=== PATIENT | female | born 1960 | race Hispanic/Latino ===

== ENCOUNTER 2021-09-21 03:57 | Emergency (ER) | payer OTHER, SELFPAY ==
[~2021-09-21] VITALS: Ht 152.4 cm; Wt 63.0 kg
[2021-09-21 04:28] LABS: BASOPHILS % (AUTO) 0.7 % (0.0-5.0); EOSINOPHILS % (AUTO) 2.4 % (0.0-8.0); HEMATOCRIT 42.6 % (36-48); LYMPHOCYTES % (AUTO) 29.9 % (21.0-51.0); MEAN CORPUSCULAR HEMOGLOBIN 29.6 pg (27.0-33.0); MEAN CORPUSCULAR HGB CONC 33.1 g/dL (32.0-36.0); MEAN CORPUSCULAR VOLUME 89.5 fL (79-99); MONOCYTES % (AUTO) 6.3 % (3.0-13.0); NEUTROPHILS % (AUTO) 60.4 % (40.0-77.0); PLATELET COUNT (AUTO) 306 K/uL (130-400); RED BLOOD CELL COUNT(AUTO) 4.76 MIL/uL (4.00-5.50); RED CELL DISTRIBUTION WIDTH 12.7 % (11.0-15.5); WHITE BLOOD COUNT (AUTO) 12.2 K/uL (4.8-10.8)
[2021-09-21] MEDS ORDERED: MORPHINE 4 MG SYG IVP ONE (04:30)
[2021-09-21] MEDS ORDERED: ONDANSETRON 4MG INJ IVP ONE (04:30)
[2021-09-21 04:46] LABS: CREATININE 0.9 mg/dL (0.5-1.5); POTASSIUM 3.5 mmol/L (3.5-5.1)
[2021-09-21 04:54] LABS: ALBUMIN 3.8 g/dL (3.5-5.0); BILIRUBIN,TOTAL 0.4 mg/dL (0.2-1.0); TOTAL PROTEIN, SERUM 7.2 g/dL (6.0-8.3)
[2021-09-21 05:00] LABS: BILIRUBIN,URINE Negative (NEGATIVE); COLOR,URINE Yellow (YELLOW); GLUCOSE, URINE (UA) Negative (NEGATIVE); KETONES,URINE Trace mg/dL (NEGATIVE); LEUKOCYTE ESTERASE ,URINE Trace (NEGATIVE); NITRATE,URINE Negative (NEGATIVE); OCCULT BLOOD,URINE Negative (NEGATIVE); PH,URINE 6.5 (5.0-8.0); PROTEIN,URINE Trace mg/dL (NEGATIVE)
[2021-09-21 05:02] LABS: HCG,QUAL RESULT NEGATIVE (NEGATIVE)
[2021-09-21 05:03] LABS: APPEARANCE,URINE SLIGHTLY CLOUDY (CLEAR)
[2021-09-21 05:09] LABS: AMORPHOUS SEDIMENT,UR Moderate /LPF (None Seen); BACTERIA,URINE Few /HPF (None Seen); MUCUS,URINE Moderate LPF (None Seen); RBC,URINE 0-1 /HPF (0-1); SQUAMOUS EPITHELIAL CELL,UR 0-2 /HPF (0-2); WBC,URINE 0-1 /HPF (0-1)
[2021-09-21 07:24] VITALS: BP 126/37
[2021-09-21] MEDS ORDERED: DICL50TA9 PO (07:25)
[2021-09-21] MEDS ORDERED: KETOROLAC 30MG VIAL (30MG/ML) IVP ONE (07:30)
== END 2021-09-21 07:50 | disposition home or self-care (01) ==
LOC: EDH 03:57
DX: K80.70 Calculus of gallbladder and bile duct without cholecystitis without obstruction (principal)
CPT/HCPCS: 36415; 76705; 80053; 81001; 81025; 83690; 85025; 96374; 96375; 99284; J1885; J2270; J2405

== ENCOUNTER 2024-04-05 09:30 | Inpatient (IN) | payer SELFPAY ==
[~2024-04-05] VITALS: Ht 165.1 cm; Wt 55.4 kg
[~2024-04-05 09:30] MED LIST: DICL50TA9 PO
[2024-04-05 09:55] LABS: APPEARANCE,URINE TURBID (CLEAR); BILIRUBIN,URINE NEGATIVE (NEGATIVE); COLOR,URINE YELLOW (YELLOW); GLUCOSE, URINE (UA) NEGATIVE (NEGATIVE); KETONES,URINE NEGATIVE (NEGATIVE); LEUKOCYTE ESTERASE ,URINE NEGATIVE Leu/uL (NEGATIVE); NITRATE,URINE NEGATIVE (NEGATIVE); OCCULT BLOOD,URINE NEGATIVE (NEGATIVE); PROTEIN,URINE 10 mg/dL (NEGATIVE)
[2024-04-05 09:59] LABS: BASOPHILS # (AUTO) 0.06 K/uL (0.00-0.20); BASOPHILS % (AUTO) 0.6 % (0.0-5.0); EOSINOPHILS # (AUTO) 0.13 K/uL (0.00-0.70); EOSINOPHILS % (AUTO) 1.3 % (0.0-8.0); HEMATOCRIT 44.2 % (36-48); IMMATURE GRANULOCYTE ABSOLUTE 0.03 K/uL (0-1); LYMPHOCYTES # (AUTO) 1.9 K/uL (1.0-4.8); LYMPHOCYTES % (AUTO) 19.4 % (21.0-51.0); MEAN CORPUSCULAR HEMOGLOBIN 29.2 pg (27.0-33.0); MEAN CORPUSCULAR HGB CONC 33.5 g/dL (32.0-36.0); MEAN CORPUSCULAR VOLUME 87.4 fL (79-99); MONOCYTES # (AUTO) 0.7 K/uL (0.1-1.0); MONOCYTES % (AUTO) 6.9 % (3.0-13.0); NEUTROPHILS # (AUTO) 6.9 K/uL (1.8-7.7); NEUTROPHILS % (AUTO) 71.5 % (40.0-77.0); PLATELET COUNT (AUTO) 282 K/uL (130-400); RED BLOOD CELL COUNT(AUTO) 5.06 MIL/uL (4.00-5.50); RED CELL DISTRIBUTION WIDTH 13.1 % (11.0-15.5); WHITE BLOOD COUNT (AUTO) 9.7 K/uL (4.8-10.8)
[2024-04-05 10:02] LABS: ADD UA MICROSCOPIC YES
[2024-04-05 10:03] LABS: SQUAMOUS EPITHELIAL CELL,UR RARE /HPF (0-2); WBC,URINE None Seen /HPF (0-1); YEAST,URINE BUDDING FEW /HPF (None Seen)
[2024-04-05 10:08] LABS: CREATININE 0.8 mg/dL (0.5-1.0); POTASSIUM 3.4 mmol/L (3.5-5.1)
[2024-04-05 10:13] LABS: BILIRUBIN,DIRECT 0.4 mg/dL (0.0-0.3); BILIRUBIN,TOTAL 0.8 mg/dL (0.2-1.0)
--- NOTE | 2024-04-05 10:37 | ERN ---
General Chief Complaint: Abdominal Pain Stated Complaint: RT UPPER QUAD PAIN Time Seen by MD: 09:33 History of Present Illness Initial Comments 63-year-old female, otherwise healthy, no surgical history, presents for right upper quadrant pain and vomiting beginning this morning at around three or 4:00 a.m.. Significant pain, very tender. No fevers no diarrhea no dysuria or flank pain. She reports she had pain similar to this a year two ago that resolved on its own. Allergies: Coded Allergies: No Known Allergies (Unverified Allergy, Unknown, 09/21/21) Home Meds Active Scripts Diclofenac Sodium (Diclofenac Sodium) 50 Mg Tablet.dr, 50 MG PO TIDP PRN for SEVERE PAIN (7-10), #20 TAB 0 Refills Prov:JAVIER OSBORN MD 09/21/21 Past Medical History Past Medical History: No Pertinent History Past Surgical History: Social History Social History: Other ROS Dictation CONSTITUTIONAL: No chills, no fever, no weakness, no diaphoresis, no malaise. HEAD/FACE: No signs of trauma. EENT: No eye pain, no blurred vision, no tearing, no double vision, no ear pain, no ear discharge, no nose pain, no nasal congestion, no throat pain, no throat swelling, no mouth pain. RESPIRATORY: No cough, no orthopnea, no SOB, no stridor, no wheezing. CARDIOVASCULAR: No chest pain, no edema, no palpitations, no syncope. GASTROINTESTINAL/ABDOMINAL: Right upper quadrant pain and vomiting GENITOURINARY: No abnormal discharge, no dysuria, no frequent urination, no hematuria. No complaints of pain in the genitals. MUSCULOSKELETAL: No back pain, no gout, no joint pain, no joint swelling, no muscle pain, no muscle stiffness, no neck pain. INTEGUMENTARY: No change in color, no change in hair/nails, no dryness, no lesion, no lumps, no rash. NEUROLOGICAL/PSYCH: No anxiety, not depressed, no emotional problem, no headache, no numbness, no pre-existing deficit, no history of seizures, no tremors, no weakness. HEMATOLOGIC/LYMPHATIC: Not anemic, no history of blood clots, no apparent bleeding, no bruising, glands not swollen. All Systems Negative, Except as Noted. Physical Exam Physical Exam Dictation VITAL SIGNS: Reviewed. GENERAL APPEARANCE: Alert, moderate discomfort HEAD AND FACE: Non-traumatic. EYES: PERRL, pink conjunctivas, eyelid no trauma, anterior chamber clear. EARS: Pinnas intact and no signs of trauma or erythema. Ear canals clear and no discharge. TMs no erythema. NOSE: No discharge, no bleeding. OROPHARYNX: Mouth normal, teeth no caries, tongue pink. Pharynx clear, no erythema. Tonsils no exudates, no abscesses noted. Mucous membrane moist. NECK: Supple, non-tender, no thyromegaly, no masses, no JVD, no bruits. BREAST: Deferred. CHEST: No tenderness, no crepitus, no paradoxical movement, no retractions. LUNGS: Clear, well-ventilated, symmetric, no rales, no wheezing, no rhonchi, no stridor, good breath sounds bilaterally. HEART: Regular rate, regular rhythm, no murmur, no gallops. VASCULAR: No peripheral edema. ABDOMEN: Positive Ceja sign, right upper quadrant tenderness. No distention. RECTAL: Deferred. GENITAL: Deferred. NEUROLOGICAL: Normal speech, gross motor function intact, gross sensory function intact. MUSCULOSKELETAL: Neck nontender, full range of motion, back nontender, full ran ge of motion. EXTREMITIES: Nontender, full range of motion. SKIN: Color pink, dry, no turgor, no rash, no lacerations, no abrasions, no contusions. LYMPHATICS: Deferred. Results Laboratory and Microbiology Lab and Micro Result Laboratory Tests Test 04/05/24 09:43 04/05/24 09:50 Urine Color YELLOW (YELLOW) Urine Appearance TURBID (CLEAR) Urine pH 8.0 (5.0-8.0) Urine Specific [place] 1.019 (1.001-1.031) Urine Protein 10 mg/dL (NEGATIVE) H Urine Glucose (UA) NEGATIVE mg/dL (NEGATIVE) Urine Ketones NEGATIVE mg/dL (NEGATIVE) Urine Occult Blood NEGATIVE (NEGATIVE) Urine Nitrate NEGATIVE (NEGATIVE) Urine Bilirubin NEGATIVE mg/dL (NEGATIVE) Urine Urobilinogen 2.0 mg/dL (0.2-1.0) H Urine Leukocyte Esterase NEGATIVE Sobeida/uL Urine RBC 6-10 /HPF (0-1) H Urine WBC None Seen /HPF (0-1) Urine WBC Clumps (Auto) 2-5 /HPF (0-1) H Urine Squamous Epithelial Cells RARE /HPF (0-2) Urine Amorphous Crystals (Auto) RARE /LPF (None Seen) Urine Bacteria None /HPF (None Seen) Urine Yeast FEW /HPF (None Seen) White Blood Count 9.7 K/uL (4.8-10.8) Red Blood Count 5.06 MIL/uL (4.00-5.50) Hemoglobin 14.8 g/dL (12.0-16.0) Hematocrit 44.2 % (36-48) Mean Corpuscular Volume 87.4 fL (79-99) Mean Corpuscular Hemoglobin 29.2 pg (27.0-33.0) Mean Corpuscular Hemoglobin Concent 33.5 g/dL (32.0-36.0) Red Cell Distribution Width 13.1 % (11.0-15.5) Platelet Count 282 K/uL (130-400) Mean Platelet Volume 10.5 fL (7.5-10.5) Immature Granulocyte % (Auto) 0.3 % (0-1) Neutrophils (%) (Auto) 71.5 % (40.0-77.0) Lymphocytes (%) (Auto) 19.4 % (21.0-51.0) L Monocytes (%) (Auto) 6.9 % (3.0-13.0) Eosinophils (%) (Auto) 1.3 % (0.0-8.0) Basophils (%) (Auto) 0.6 % (0.0-5.0) Neutrophils # (Auto) 6.9 K/uL (1.8-7.7) Lymphocytes # (Auto) 1.9 K/uL (1.0-4.8) Monocytes # (Auto) 0.7 K/uL (0.1-1.0) Eosinophils # (Auto) 0.13 K/uL (0.00-0.70) Basophils # (Auto) 0.06 K/uL (0.00-0.20) Absolute Immature Granulocyte (auto 0.03 K/uL (0-1) Nucleated Red Blood Cells 0.0 % (0.0-0.19) Sodium Level 140 mmol/L (136-145) Potassium Level 3.4 mmol/L (3.5-5.1) L Chloride Level 102 mmol/L (101-111) Carbon Dioxide Level 31 mmol/L (21-32) Blood Urea Nitrogen 12 mg/dL (7-18) Creatinine 0.8 mg/dL (0.5-1.0) Glomerular Filtration Rate Calc 84 mL/min (>90) Random Glucose 130 mg/dL (70-105) H Total Calcium 9.3 mg/dL (8.5-10.1) Total Bilirubin 0.8 mg/dL (0.2-1.0) Direct Bilirubin 0.4 mg/dL (0.0-0.3) H Aspartate Amino Transf (AST/SGOT) 289 U/L (10-37) H Alanine Aminotransferase (ALT/SGPT) 155 U/L (12-78) H Alkaline Phosphatase 192 U/L (50-136) H Troponin I High Sensitivity 4 ng/L (4-50) Total Protein 8.0 g/dL (6.0-8.3) Albumin 4.0 g/dL (3.5-5.0) Lipase 48 U/L (16-77) MDM CC: Right upper quadrant pain, nausea, vomiting Historian: Patient Comorbidities: None Limitations by social determinants of health: No PCP or outpatient follow up Differential diagnosis: Biliary disease, pancreatitis, cholecystitis, choledocholithiasis, gastritis, kidney stone, other. Right upper quadrant ultrasound ( ordered and independently interpreted by me): Concerning for symptomatic cholelithiasis or cholecystitis. There are gallstones with a distended gallbladder 12 cm. Positive Ceja's sign. CBD is stable. Vital signs: Stable, remained stable in the ER Labs: Ordered and independently interpreted by me): No leukocytosis or anemia. Chemistry panel shows normal electrolytes, AST ALT elevated, alk-phos elevated. T bili and D bili stable. Lipase stable. Troponin normal. EKG: Sinus rhythm, rate 64 normal axis good R progression intervals are stable no STEMI. Independently interpreted by me. No signs of infection. Patient received IV morphine, IV Zofran, IV Toradol and 1 L normal saline here in the ER. Also received a dose of Zosyn. We will admit for cholecystitis. Patient is agreeable. Consultation: Hospitalist for admission ED Course Orders Procedure Category Date Status Time Cbc With Differential LAB 04/05/24 Complete 09:37 Troponin I High LAB 04/05/24 Complete Sensitivity 09:37 Urinalysis Profile LAB 04/05/24 Complete 09:37 Us Abdominal Ruq\Ltd US 04/05/24 Taken 09:37 0.9%Nacl 1000ml (Ns PHA 04/05/24 In Process 1000ml) 10:00 Ketorolac PHA 04/05/24 In Process Tromethamine 15mg/Ml 10:00 Morphine 4mg Syg PHA 04/05/24 In Process (Morphine 4mg Syg) 10:00 Ondansetron 4mg Inj PHA 04/05/24 In Process (Zofran 4mg Inj) 10:00 Lipase LAB 04/05/24 Complete 09:37 Basic Metabolic Panel LAB 04/05/24 Complete 09:37 Hepatic Function Panel LAB 04/05/24 Complete 09:37 Current Medications Medications (Trade) Dose Ordered Sig/Emerson Route PRN Reason Start Time Stop Time Status Last Admin Dose Admin Ketorolac Tromethamine (toRADol) 15 mg ONCE ONCE IV 04/05/24 10:00 04/05/24 10:01 Morphine Sulfate (morPHINE 4MG SYG) 4 mg ONCE ONCE IVP 04/05/24 10:00 04/05/24 10:01 Ondansetron HCl (zoFRAN 4MG INJ) 4 mg ONCE ONCE IVP 04/05/24 10:00 04/05/24 10:01 Sodium Chloride 1,000 ml @ 0 mls/hr ONCE ONCE IV 04/05/24 10:00 04/05/24 10:01 Vital Signs Date Time Temp Pulse Resp B/P (MAP) Pulse Ox O2 Delivery O2 Flow Rate FiO2 04/05/24 09:32 97.0 78 16 120/64 0 Room Air DX & DISP Disposition: Inpatient Departure Impression: Primary Impression: Cholecystitis Condition: Stable Referrals: NONE (PCP) JOCELYN DAILY DO Apr 05, 2024 10:37
[2024-04-05] MEDS: 0.9%NACL 1000ML 1,000 ML IV ONE (10:44)
[2024-04-05] MEDS: ketOROlac 15MG/ML VIAL (15MG/ML) IV ONE (10:44)
[2024-04-05] MEDS: ondanSETRON 4MG INJ IVP ONE (10:45)
[2024-04-05] MEDS: morPHINE 4 MG SYG IVP ONE (10:45)
--- NOTE | 2024-04-05 10:48 | HMCIMG ---
US ABDOMINAL RUQ\E\LTD HISTORY: Adominal Pain TECHNIQUE: US ABDOMINAL RUQ\E\LTD. FINDINGS: LIVER: Diffuse increased echogenicity of the liver is seen suggestive of hepatic parenchymal disease, such as hepatic steatosis. GALLBLADDER: Distended gallbladder with gallstones and positive Ceja sign. No gallbladder wall thickening is seen. Findings may represent acute cholecystitis in the proper clinical setting. CBD: Measures up to 0.3cm. PANCREAS: The visualized pancreas appears within normal limits. RIGHT KIDNEY: measures 7.4cm in length. No hydronephrosis or calculi. IMPRESSION: Distended gallbladder with gallstones and positive Ceja sign. No gallbladder wall thickening is seen. Findings may represent early acute cholecystitis in the proper clinical setting. Hepatic steatosis.
[2024-04-05] MEDS ORDERED: PoTASSium chl 10% ELIXIR 20MEQ 20 MEQ/15 ML UDCUP PO PRN (11:30)
[2024-04-05] MEDS ORDERED: ondanSETRON 4MG INJ IVP PRN (11:30)
[2024-04-05] MEDS ORDERED: ketOROlac 15MG/ML VIAL (15MG/ML) IM PRN (11:30)
[2024-04-05] MEDS ORDERED: PoTASSium chloRIDE 20MEQ ER 20 MEQ ERTAB PO PRN (11:30)
[2024-04-05] MEDS ORDERED: acetaMINOPHEN 500 MG TABLET PO PRN (11:30)
[2024-04-05] MEDS ORDERED: PoTASSium chloRIDE 20MEQ/100ML 100 ML IV PRN (11:30)
[2024-04-05] MEDS ORDERED: morPHINE 2 MG SYG IVP PRN (11:30)
[2024-04-05] MEDS: LACTATED RINGERS 1000ML 1,000 ML IV SCH (11:45)
--- NOTE | 2024-04-05 11:46 | HP ---
[facility] HISTORY AND PHYSICAL Date of Service: Apr 05, 2024 Time of Service: 11:44 HISTORY OF PRESENT ILLNESS: Date of service: 04/05/2024 63-year-old female with history of cholelithiasis, fatty liver disease who presented to the ER with chief complaint of who presented to the ER with chief complaint of right upper quadrant abdominal pain with associated nausea and and vomiting. Symptoms started close to 4:00 a.m.. Pain was 8/10 in severity. Patient denies any fevers or chills otherwise. Patient had presented similarly about a year ago to [facility] and was diagnosed with cholelithiasis. She denies any previous cardiac or medical comorbidities otherwise. Son reports that she ate a spicy meal for supper last night which probably contributed to the current symptoms. On presentation to the hospital, patient was noted to be afebrile and hemodynamically stable. CMP remarkable for sodium of 140, potassium 3.4, creatinine 0.8, total bilirubin of 0.8, AST of 289, ALT of 155, alkaline phosphatase of 192. Patient underwent right upper quadrant ultrasound which showed findings of distended gallbladder with gallstones and positive Ceja's sign. Common bile duct was noted to be 0.3 cm. Findings concerning for early acute cholecystitis. Patient will be admitted for further management of biliary colic with cholelithiasis and developing acute cholecystitis. Consultation with General surgery will be requested. Patient will be placed on bowel rest with IV fluids and IV antibiotics. HIDA scan will be obtained as well to confirm diagnosis of acute cholecystitis. Plan of care was discussed with patient and son at bedside. REVIEW OF SYSTEMS CONSTITUTIONAL: Denies fevers, chills, or night sweats. No unintentional weight loss reported. NEUROLOGICAL: Denies headache, amaurosis fugax, motor weakness, sensory deficit, vertigo/spinning sensation, gait abnormalities, or tremors. ENT: No hearing loss, otalgia, otorrhea, rhinitis, rhinorrhea, hoarseness, or sore throat. CARDIOVASCULAR: Denies any exertional angina, dyspnea on exertion, orthopnea, paroxysmal nocturnal dyspnea, palpitations, life-threatening arrhythmias, claudication. PULMONARY: Denies any shortness of breath, cough, phlegm/sputum, hemoptysis, pleuritic chest pain. SLEEP: Denies morning headaches, daytime somnolence or napping. Denies difficulty falling asleep, staying asleep, waking from sleep. Denies knowledge of snoring. GASTROINTESTINAL: Nausea, vomiting, abdominal pain GENITOURINARY: Denies frequency, urgency, nocturia, hematuria or incontinence (Storage/Irritative symptoms.) Low urinary stream, straining to void, urinary intermittency or hesitancy, splitting of the voiding stream, terminal dribbling. ENDOCRINOLOGIC: Denies polyuria, polydipsia, polyphagia or heat/cold intolerances. HEMATOLOGIC: Denies thrombophilia/previous clots, or coagulopathy/bleeding disorders. ONCOLOGIC: Denies personal history of malignancy. DERMATOLOGIC: Denies rashes or pruritus. PSYCHIATRIC: Denies any suicidal or homicidal ideation. Denies hallucinations. PAST MEDICAL HISTORY: Cholelithiasis, fatty liver disease PAST SURGICAL HISTORY: Denies previous surgical history PAST SOCIAL HISTORY: Smokes about 2-3 cigarettes per month for several years, denies any alcohol consumption FAMILY HISTORY: Denies pertinent family history Allergies: Patient denies known drug allergies Medications: Family will be bringing home medication list to be reconciled and updated Coded Allergies: No Known Allergies (Unverified Allergy, Unknown, 09/21/21) PHYSICAL EXAM GENERAL APPEARANCE: The patient is awake, alert, and oriented, in no acute cardiopulmonary distress. NEUROLOGICAL: Cranial nerves II-XII grossly intact. Motor is 5/5 in bilateral upper and lower extremities proximal to distal. No sensory deficits. HEENT: Face is symmetric. Pupils are equal and reactive. Extraocular movements are intact. NECK: Supple. No JVD. No thyromegaly. No submental, submandibular, pre-/po stauricular, occipital or supraclavicular lymphadenopathy. CHEST: Normal chest expansion. No Telemetry. LUNGS: Absence of any rales, rhonchi or any wheezing. CARDIOVASCULAR: Regular. S1 and S2 normal. No appreciable rubs, murmurs or gallops. ABDOMEN: Soft, tenderness to palpation of the right upper quadrant with no rebound or guarding : Deferred. No Chau. EXTREMITIES: Non-edematous and not cyanotic. No clubbing. Good capillary refill. SKIN: No skin breakdown. Vital Sign (Last 24 Hours) 04/05/24 09:32 Temp 97.0 Pulse 78 Resp 16 B/P (MAP) 120/64 Pulse Ox 0 O2 Delivery Room Air LABS: Laboratory: Test 04/05/24 09:50 04/05/24 09:43 Range/Units White Blood Count 9.7 4.8-10.8 K/uL Red Blood Count 5.06 4.00-5.50 MIL/uL Hemoglobin 14.8 12.0-16.0 g/dL Hematocrit 44.2 36-48 % Mean Corpuscular Volume 87.4 79-99 fL Mean Corpuscular Hemoglobin 29.2 27.0-33.0 pg Mean Corpuscular Hemoglobin Concent 33.5 32.0-36.0 g/dL Red Cell Distribution Width 13.1 11.0-15.5 % Platelet Count 282 130-400 K/uL Mean Platelet Volume 10.5 7.5-10.5 fL Immature Granulocyte % (Auto) 0.3 0-1 % Neutrophils (%) (Auto) 71.5 40.0-77.0 % Lymphocytes (%) (Auto) 19.4 L 21.0-51.0 % Monocytes (%) (Auto) 6.9 3.0-13.0 % Eosinophils (%) (Auto) 1.3 0.0-8.0 % Basophils (%) (Auto) 0.6 0.0-5.0 % Neutrophils # (Auto) 6.9 1.8-7.7 K/uL Lymphocytes # (Auto) 1.9 1.0-4.8 K/uL Monocytes # (Auto) 0.7 0.1-1.0 K/uL Eosinophils # (Auto) 0.13 0.00-0.70 K/uL Basophils # (Auto) 0.06 0.00-0.20 K/uL Absolute Immature Granulocyte (auto 0.03 0-1 K/uL Nucleated Red Blood Cells 0.0 0.0-0.19 % Sodium Level 140 136-145 mmol/L Potassium Level 3.4 L 3.5-5.1 mmol/L Chloride Level 102 101-111 mmol/L Carbon Dioxide Level 31 21-32 mmol/L Blood Urea Nitrogen 12 7-18 mg/dL Creatinine 0.8 0.5-1.0 mg/dL Glomerular Filtration Rate Calc 84 >90 mL/min Random Glucose 130 H 70-105 mg/dL Total Calcium 9.3 8.5-10.1 mg/dL Total Bilirubin 0.8 0.2-1.0 mg/dL Direct Bilirubin 0.4 H 0.0-0.3 mg/dL Aspartate Amino Transf (AST/SGOT) 289 H 10-37 U/L Alanine Aminotransferase (ALT/SGPT) 155 H 12-78 U/L Alkaline Phosphatase 192 H 50-136 U/L Troponin I High Sensitivity 4 4-50 ng/L Total Protein 8.0 6.0-8.3 g/dL Albumin 4.0 3.5-5.0 g/dL Lipase 48 16-77 U/L Urine Color YELLOW YELLOW Urine Appearance TURBID CLEAR Urine pH 8.0 5.0-8.0 Urine Specific [place] 1.019 1.001-1.031 Urine Protein 10 H NEGATIVE mg/dL Urine Glucose (UA) NEGATIVE NEGATIVE mg/dL Urine Ketones NEGATIVE NEGATIVE mg/dL Urine Occult Blood NEGATIVE NEGATIVE Urine Nitrate NEGATIVE NEGATIVE Urine Bilirubin NEGATIVE NEGATIVE mg/dL Urine Urobilinogen 2.0 H 0.2-1.0 mg/dL Urine Leukocyte Esterase NEGATIVE NEGATIVE Sobeida/uL Urine RBC 6-10 H 0-1 /HPF Urine WBC None Seen 0-1 /HPF Urine WBC Clumps (Auto) 2-5 H 0-1 /HPF Urine Squamous Epithelial Cells RARE 0-2 /HPF Urine Amorphous Crystals (Auto) RARE None Seen /LPF Urine Bacteria None None Seen /HPF Urine Yeast FEW None Seen /HPF Current Medications Medications (Trade) Dose Ordered Sig/Emerson Route PRN Reason Start Time Stop Time Status Last Admin Dose Admin Acetaminophen (TYLenol 500MG TAB) 500 mg Q6H PRN PO MILD PAIN (1-3) 04/05/24 11:30 05/05/24 11:29 Ketorolac Tromethamine (toRADol) 15 mg Q12H PRN IM MODERATE PAIN (4-6) 04/05/24 11:30 04/05/24 11:27 DC Ketorolac Tromethamine (toRADol) 15 mg Q12H PRN IV MODERATE PAIN (4-6) 04/05/24 11:30 04/10/24 11:29 Lactated Ringer's 1,000 ml @ 75 mls/hr [id number] IV 04/05/24 11:30 05/05/24 11:29 Morphine Sulfate (morPHINE 2MG SYG) 2 mg Q6H PRN IVP SEVERE PAIN (7-10) 04/05/24 11:30 04/12/24 11:29 Ondansetron HCl (zoFRAN 4MG INJ) 4 mg Q6H PRN IVP NAUSEA/VOMITING 04/05/24 11:30 05/05/24 11:29 Pantoprazole Sodium (PROTonix 40MG INJ) 40 mg Q24H IVP 04/05/24 11:30 05/05/24 11:29 Piperacillin Sod/ Tazobactam Sod (Zosyn 3.375gm+NS 50ml) 3.375 gm Q8H IV 04/05/24 11:00 04/15/24 10:59 Potassium Chloride 100 ml @ 100 mls/hr AD PRN IV POTASSIUM PROTOCOL 04/05/24 11:30 05/05/24 11:29 Potassium Chloride (K-Dur/Klor-Con 20meq) 20 meq AD PRN PO POTASSIUM PROTOCOL 04/05/24 11:30 05/05/24 11:29 Potassium Chloride (KCl 10% Elixir 20meq/15ml) 20 meq AD PRN PO POTASSIUM PROTOCOL 04/05/24 11:30 05/05/24 11:29 DIAGNOSTICS / RADIOLOGY: [place] [address] IMAGING REPORT Signed PATIENT: ROBERTO CARLOS TORRES MR#: [id number] : 1960 SEX: F AGE: 63 LOCATION: [facility] ORDER 7 STATUS: REG REPORT#: [id number] SERVICE [id number] REASON: Adominal Pain ORDERING PHYSICIAN: JOCELYN DAILY DO PROCEDURE: [id number] - US ABDOMINAL RUQ\LTD US ABDOMINAL RUQ\E\LTD HISTORY: Adominal Pain TECHNIQUE: US ABDOMINAL RUQ\E\LTD. FINDINGS: LIVER: Diffuse increased echogenicity of the liver is seen suggestive of hepatic parenchymal disease, such as hepatic steatosis. GALLBLADDER: Distended gallbladder with gallstones and positive Ceja sign. No gallbladder wall thickening is seen. Findings may represent acute cholecystitis in the proper clinical setting. CBD: Measures up to 0.3cm. PANCREAS: The visualized pancreas appears within normal limits. RIGHT KIDNEY: measures 7.4cm in length. No hydronephrosis or calculi. IMPRESSION: Distended gallbladder with gallstones and positive Ceja sign. No gallbladder wall thickening is seen. Findings may represent early acute cholecystitis in the proper clinical setting. Hepatic steatosis. DICTATED BY: SHEFALI LAWSON MD DATE: 04/05/24 104 ELECTRONICALLY SIGNED BY: SHEFALI LAWSON MD DATE: 04/05/24 104 ASSESSMENT: Suspected acute cholecystitis, POA Cholelithiasis with history of recurrent biliary colic, POA Fatty liver disease, POA Mild cholestatic hepatitis, POA Hypokalemia, POA PVCs, POA PLAN: Patient will be admitted to medical-surgical floor Patient will be placed on bowel rest, we will start patient on lactated Ringer's at 75 mL/hour Broad-spectrum antibiotics with IV Zosyn Pain control with Tylenol for mild pain, Toradol for moderate pain in morphine for severe pain Consultation with General surgery will be requested with , discussed patient's case, plan to obtain HIDA scan to confirm diagnosis of acute cholecystitis Patient was educated on low-fat diet, verbalized understanding Monitor liver function tests closely All labs will be repeated in the morning Potassium will be repleted per protocol EKG showed some PVCs, electrolytes will be repleted including potassium and magnesium and patient will be kept on telemetry for tonight Date of service: 04/05/2024 Plan of care was discussed with patient at bedside, Adams Huitron MD Advanced Care Planning: Which of the following were discussed: Hospice care: Yes __ No _X_ Therapeutic options: Yes _X_ No __ Advance directives: Yes __X No __ Other discussions: Discussed with who?: Patient Voluntary nature of this service was explained to the patient? Yes _x_ No __ Amount of time spent: 20 minutes ADAMS HUITRON MD Apr 05, 2024 11:46
[2024-04-05] MEDS: PANTOPrazole 40 MG/VIAL IVP SCH (11:48)
[2024-04-05] MEDS: ZOSYN 3.375GM +NS 50ML IV SCH (11:49)
[2024-04-05 12:11] LABS: INR <= 0.93 (0.85-1.15); PROTHROMBIN TIME 10.1 SEC (9.6-11.6)
--- NOTE | 2024-04-05 12:12 | HMCIMG ---
Exam Type: CHEST 1VW Clinical Information: assess for any significant infiltrates Comparison: None Findings: The lungs are clear of infiltrates. The heart is normal in size. The bony and soft tissue structures of the chest are unremarkable. Impression: Clear lungs.
[2024-04-05 12:13] LABS: PARTIAL THROMBOPLASTIN TIME 26.1 SEC (26.3-35.5)
[2024-04-05 12:28] LABS: HEMOGLOBIN A1C 5.6 % (4.0-6.0)
[2024-04-05 12:46] LABS: THYROID STIMULATING HORMONE 1.91 uIU/mL (0.36-3.74)
[2024-04-05 12:48] LABS: ACETAMINOPHEN < 1 mcg/mL (10-30)
--- NOTE | 2024-04-05 14:05 | EKG ---
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
[2024-04-05 15:20] VITALS: BP 107/70; PULSE 63; RESP 18; TEMP 97.8
[2024-04-05 20:00] VITALS: BP 98/56; PULSE 82; RESP 17; TEMP 99.2
--- NOTE | 2024-04-05 20:52 | HMCIMG ---
NM HIDA WO EF/CCK HISTORY: cholelithiasis, r/o acute cholecystitis TECHNIQUE: The patient was injected with mCi technetium 99 mebrofenin. FINDINGS: Imaging reveals prompt clearance of radiotracer from the cardiac blood pool. There is physiologic radiotracer activity in the liver. No radiotracer excretion is seen in the CBD, duodenum and gallbladder concerning for high-grade CBD obstruction. Consider correlation with MRCP. IMPRESSION: No radiotracer excretion is seen in the CBD, duodenum and gallbladder concerning for high-grade CBD obstruction. Consider correlation with MRCP.
[2024-04-06] VITALS (28 sets, daily range): BP systolic 92–112; BP diastolic 50–72; PULSE 57–76; RESP 13–20; TEMP 97.3–98.5; O2SAT 96–99
[2024-04-06 06:10] LABS: BASOPHILS # (AUTO) 0.05 K/uL (0.00-0.20); BASOPHILS % (AUTO) 0.8 % (0.0-5.0); EOSINOPHILS # (AUTO) 0.32 K/uL (0.00-0.70); EOSINOPHILS % (AUTO) 5.4 % (0.0-8.0); HEMATOCRIT 35.7 % (36-48); IMMATURE GRANULOCYTE ABSOLUTE 0.02 K/uL (0-1); LYMPHOCYTES # (AUTO) 1.3 K/uL (1.0-4.8); LYMPHOCYTES % (AUTO) 21.9 % (21.0-51.0); MEAN CORPUSCULAR HEMOGLOBIN 29.3 pg (27.0-33.0); MEAN CORPUSCULAR HGB CONC 33.1 g/dL (32.0-36.0); MEAN CORPUSCULAR VOLUME 88.6 fL (79-99); MONOCYTES # (AUTO) 0.6 K/uL (0.1-1.0); MONOCYTES % (AUTO) 9.2 % (3.0-13.0); NEUTROPHILS # (AUTO) 3.7 K/uL (1.8-7.7); NEUTROPHILS % (AUTO) 62.4 % (40.0-77.0); PLATELET COUNT (AUTO) 213 K/uL (130-400); RED BLOOD CELL COUNT(AUTO) 4.03 MIL/uL (4.00-5.50)
[2024-04-06 06:57] LABS: ALBUMIN 2.9 g/dL (3.5-5.0); BILIRUBIN,TOTAL 3.8 mg/dL (0.2-1.0); CREATININE 0.9 mg/dL (0.5-1.0); POTASSIUM 3.7 mmol/L (3.5-5.1); TOTAL PROTEIN, SERUM 5.7 g/dL (6.0-8.3)
--- NOTE | 2024-04-06 10:53 | PN ---
[facility] PROGRESS NOTE Date of Service: Apr 06, 2024 Time of Service: 10:53 SUBJECTIVE: [ ] Patient seen and examined in room 422 PCP self-referral Admitting date 04/05/2024 Today at bedside evaluation patient is alert and oriented x3. Son and daughter also at bedside. Primary nurse also at bedside. She is NPO pending MRCP results. Around noon MRCP results showed distended gallbladder with gallstone and trace of pericholecystic fluid concerning of acute cholecystitis, consider correlation with HIDA scan if clinically indicated, CBD is normal in caliber, there is no choledocholithiasis. Dr. Kramer was made aware by primary nurse and does not recommend ERCP. Recommended to proceed with a cholecystectomy. General surgeon Dr. Trinidad notified of recommendations and we will be seeing patient. Patient's vital signs are stable. CBC and BMP are stable. LFTs worsened today. We will continue with IV fluids LR at 75 mL/hr. Continue empiric antibiotics with IV Zosyn. Pending urine culture. Answered all questions. We will await surgeon's recommendations. Discussed with primary nurse. REVIEW OF SYSTEMS CONSTITUTIONAL: Denies fevers, chills, or night sweats. No unintentional weight loss reported. NEUROLOGICAL: Denies headache, amaurosis fugax, motor weakness, sensory deficit, vertigo/spinning sensation, gait abnormalities, or tremors. ENT: No hearing loss, otalgia, otorrhea, rhinitis, rhinorrhea, hoarseness, or sore throat. CARDIOVASCULAR: Denies any exertional angina, dyspnea on exertion, orthopnea, paroxysmal nocturnal dyspnea, palpitations, life-threatening arrhythmias, claudication. PULMONARY: Denies any shortness of breath, cough, phlegm/sputum, hemoptysis, pleuritic chest pain. SLEEP: Denies morning headaches, daytime somnolence or napping. Denies difficulty falling asleep, staying asleep, waking from sleep. Denies knowledge of snoring. GASTROINTESTINAL: Nausea, vomiting, abdominal pain GENITOURINARY: Denies frequency, urgency, nocturia, hematuria or incontinence (Storage/Irritative symptoms.) Low urinary stream, straining to void, urinary intermittency or hesitancy, splitting of the voiding stream, terminal dribbling. ENDOCRINOLOGIC: Denies polyuria, polydipsia, polyphagia or heat/cold intolerances. HEMATOLOGIC: Denies thrombophilia/previous clots, or coagulopathy/bleeding disorders. ONCOLOGIC: Denies personal history of malignancy. DERMATOLOGIC: Denies rashes or pruritus. PSYCHIATRIC: Denies any suicidal or homicidal ideation. Denies hallucinations. PHYSICAL EXAM GENERAL APPEARANCE: The patient is awake, alert, and oriented, in no acute cardiopulmonary distress. NEUROLOGICAL: Cranial nerves II-XII grossly intact. Motor is 5/5 in bilateral upper and lower extremities proximal to distal. No sensory deficits. HEENT: Face is symmetric. Pupils are equal and reactive. Extraocular movements are intact. NECK: Supple. No JVD. No thyromegaly. No submental, submandibular, pre-/postauricular, occipital or supraclavicular lymphadenopathy. CHEST: Normal chest expansion. No Telemetry. LUNGS: Absence of any rales, rhonchi or any wheezing. CARDIOVASCULAR: Regular. S1 and S2 normal. No appreciable rubs, murmurs or gallops. ABDOMEN: Soft, tenderness to palpation of the right upper quadrant with no rebound or guarding : Deferred. No Chau. EXTREMITIES: Non-edematous and not cyanotic. No clubbing. Good capillary refill. SKIN: No skin breakdown. Vital Signs (last 8hr) Date Time Temp Pulse Resp B/P (MAP) Pulse Ox O2 Delivery O2 Flow Rate FiO2 04/06/24 07:53 97.9 66 20 98/59 99 Room Air 21 04/06/24 04:00 98.2 57 18 92/56 98 Room Air LABS: Laboratory: Test 04/06/24 06:00 04/06/24 05:22 04/05/24 09:50 04/05/24 09:43 Range/Units White Blood Count 6.0 # 4.8-10.8 K/uL Red Blood Count 4.03 # 4.00-5.50 MIL/uL Hemoglobin 11.8 #L 12.0-16.0 g/dL Hematocrit 35.7 L 36-48 % Mean Corpuscular Volume 88.6 79-99 fL Mean Corpuscular Hemoglobin 29.3 27.0-33.0 pg Mean Corpuscular Hemoglobin Concent 33.1 32.0-36.0 g/dL Red Cell Distribution Width 13.0 11.0-15.5 % Platelet Count 213 130-400 K/uL Mean Platelet Volume 10.5 7.5-10.5 fL Immature Granulocyte % (Auto) 0.3 0-1 % Neutrophils (%) (Auto) 62.4 40.0-77.0 % Lymphocytes (%) (Auto) 21.9 21.0-51.0 % Monocytes (%) (Auto) 9.2 3.0-13.0 % Eosinophils (%) (Auto) 5.4 0.0-8.0 % Basophils (%) (Auto) 0.8 0.0-5.0 % Neutrophils # (Auto) 3.7 1.8-7.7 K/uL Lymphocytes # (Auto) 1.3 1.0-4.8 K/uL Monocytes # (Auto) 0.6 0.1-1.0 K/uL Eosinophils # (Auto) 0.32 0.00-0.70 K/uL Basophils # (Auto) 0.05 0.00-0.20 K/uL Absolute Immature Granulocyte (auto 0.02 0-1 K/uL Nucleated Red Blood Cells 0.0 0.0-0.19 % Sodium Level 145 136-145 mmol/L Potassium Level 3.7 3.5-5.1 mmol/L Chloride Level 110 101-111 mmol/L Carbon Dioxide Level 27 21-32 mmol/L Blood Urea Nitrogen 6 L 7-18 mg/dL Creatinine 0.9 0.5-1.0 mg/dL Glomerular Filtration Rate Calc 73 >90 mL/min Random Glucose 95 70-105 mg/dL Total Calcium 8.2 L 8.5-10.1 mg/dL Magnesium Level 2.00 1.80-2.40 mg/dL Total Bilirubin 3.8 #H 0.2-1.0 mg/dL Aspartate Amino Transf (AST/SGOT) 331 H 10-37 U/L Alanine Aminotransferase (ALT/SGPT) 364 #H 12-78 U/L Alkaline Phosphatase 193 H 50-136 U/L Total Protein 5.7 #L 6.0-8.3 g/dL Albumin 2.9 #L 3.5-5.0 g/dL Whole Blood Glucose 95 70-110 MG/DL Erythrocyte Sedimentation Rate 10 0-30 MM/HR Prothrombin Time 10.1 9.6-11.6 SEC Prothromb Time International Ratio <= 0.93 0.85-1.15 Activated Partial Thromboplast Time 26.1 L 26.3-35.5 SEC Hemoglobin A1c 5.6 4.0-6.0 % Estimated Average Glucose (eAG) 114 70-126 mg/dL Direct Bilirubin 0.4 H 0.0-0.3 mg/dL Troponin I High Sensitivity 4 4-50 ng/L C-Reactive Protein, Quantitative 4.00 H 0.5-3.0 mg/L Lipase 48 16-77 U/L Procalcitonin < 0.05 L 0.05-0.5 ng/mL Thyroid Stimulating Hormone (TSH) 1.91 0.36-3.74 uIU/mL Acetaminophen Level < 1 L 10-30 mcg/mL Urine Color YELLOW YELLOW Urine Appearance TURBID CLEAR Urine pH 8.0 5.0-8.0 Urine Specific [place] 1.019 1.001-1.031 Urine Protein 10 H NEGATIVE mg/dL Urine Glucose (UA) NEGATIVE NEGATIVE mg/dL Urine Ketones NEGATIVE NEGATIVE mg/dL Urine Occult Blood NEGATIVE NEGATIVE Urine Nitrate NEGATIVE NEGATIVE Urine Bilirubin NEGATIVE NEGATIVE mg/dL Urine Urobilinogen 2.0 H 0.2-1.0 mg/dL Urine Leukocyte Esterase NEGATIVE NEGATIVE Sobeida/uL Urine RBC 6-10 H 0-1 /HPF Urine WBC None Seen 0-1 /HPF Urine WBC Clumps (Auto) 2-5 H 0-1 /HPF Urine Squamous Epithelial Cells RARE 0-2 /HPF Urine Amorphous Crystals (Auto) RARE None Seen /LPF Urine Bacteria None None Seen /HPF Urine Yeast FEW None Seen /HPF Current Medications Medications (Trade) Dose Ordered Sig/Emerson Route PRN Reason Start Time Stop Time Status Last Admin Dose Admin Acetaminophen (TYLenol 500MG TAB) 500 mg Q6H PRN PO MILD PAIN (1-3) 04/05/24 11:30 05/05/24 11:29 Ketorolac Tromethamine (toRADol) 15 mg Q12H PRN IM MODERATE PAIN (4-6) 04/05/24 11:30 04/05/24 11:27 DC Ketorolac Tromethamine (toRADol) 15 mg Q12H PRN IV MODERATE PAIN (4-6) 04/05/24 11:30 04/10/24 11:29 Lactated Ringer's 1,000 ml @ 75 mls/hr [id number] IV 04/05/24 11:30 05/05/24 11:29 04/05/24 11:45 75 MLS/HR Morphine Sulfate (morPHINE 2MG SYG) 2 mg Q6H PRN IVP SEVERE PAIN (7-10) 04/05/24 11:30 04/12/24 11:29 Ondansetron HCl (zoFRAN 4MG INJ) 4 mg Q6H PRN IVP NAUSEA/VOMITING 04/05/24 11:30 05/05/24 11:29 Pantoprazole Sodium (PROTonix 40MG INJ) 40 mg Q24H IVP 04/05/24 11:30 05/05/24 11:29 04/05/24 11:48 40 MG Piperacillin Sod/ Tazobactam Sod (Zosyn 3.375gm+NS 50ml) 3.375 gm Q8H IV 04/05/24 11:00 04/15/24 10:59 04/06/24 03:25 3.375 GM Potassium Chloride 100 ml @ 100 mls/hr AD PRN IV POTASSIUM PROTOCOL 04/05/24 11:30 05/05/24 11:29 Potassium Chloride (K-Dur/Klor-Con 20meq) 20 meq AD PRN PO POTASSIUM PROTOCOL 04/05/24 11:30 05/05/24 11:29 Potassium Chloride (KCl 10% Elixir 20meq/15ml) 20 meq AD PRN PO POTASSIUM PROTOCOL 04/05/24 11:30 05/05/24 11:29 DIAGNOSTICS / RADIOLOGY: [ ] ASSESSMENT: Acute cholecystitis, POA confirmed via MRCP Cholelithiasis with history of recurrent biliary colic, POA Transaminases, POA Choledocholithiasis ruled out, confirmed via MRCP Moderate protein calorie malnutrition, not POA Fatty liver disease, POA Mild cholestatic hepatitis, POA Hypokalemia, POA PVCs, POA PLAN: Continue admission in the medical-surgical floor under the hospitalist team Continue telemetry monitoring Continue NPO Continue IV fluids with LR at 75 mL/hr Continue IV Zosyn for empiric treatment Pending urine cultures MRCP reviewed with team, chief science officer and surgeon informed of results. From chief science officer standpoint no intervention required during this h ospitalization. We will follow Dr. Trinidad, pending cholecystectomy Patient was educated on low-fat diet, verbalized understanding Trend LFTs Monitor a.m. labs, urine culture Monitoring replete electrolyte Potassium will be repleted per protocol PRN Treatment - Add when necessary meds for nausea, vomiting, pain, constipation, insomnia. DVT/GI prophylaxis- Continue SCDs and Protonix at current doses. Full CODE STATUS This document was generated in part using voice recognition software, occasional wrong word or sound alike substitutions may have occurred due to the inherent limitations of voice recognition software. Read the chart carefully and recognize using context, where the substitutions have occurred. Although every effort was made to edit the content, fur trapper and typing errors may occur This case was discussed with Dr. Feng and above plan was formulated ATTESTATION BY PHYSICIAN I have seen and examined the patient. I reviewed the documentation, medical decision making, and treatment plan as noted by the mid-level provider above. I agree with the findings and plan of care. Tabitha Feng MD, [facility] Apr 06, 2024 10:53
[2024-04-06] MEDS: ketOROlac 15MG/ML VIAL (15MG/ML) IV PRN (11:40)
--- NOTE | 2024-04-06 11:44 | HMCIMG ---
MRCP(ABDWO)CHOLANGIOPANCREATOG HISTORY: cholecystitis, uptrending bilirubin, r/o acute choledocholithiasis TECHNIQUE: Multiplanar multisequence MRI/MRCP of the abdomen was performed without contrast. FINDINGS: Distended gallbladder with gallstone and trace of pericholecystic fluid concerning for acute cholecystitis. Consider correlation with HIDA scan if clinically indicated. CBD is normal in caliber. Lung bases are clear. There is mild cardiomegaly. There is hepatic steatosis. No acute findings in the spleen and pancreas and adrenal glands. There is no hydronephrosis. No bowel obstruction is seen. Degenerative changes of the spine are seen. IMPRESSION: Distended gallbladder with gallstone and trace of pericholecystic fluid concerning for acute cholecystitis. Consider correlation with HIDA scan if clinically indicated. CBD is normal in caliber. There is no choledocholithiasis.
--- NOTE | 2024-04-06 12:40 | CONS ---
GENERAL SURGERY CONSULTATION NOTE DATE OF CONSULTATION: Apr 06, 2024 TIME OF CONSULTATION: 12:40 CONSULTING SERVICE: Harrison Loomis MD REQUESTING PHYSICAIN: [ ] REASON FOR CONSULTATION: [ ] Abdominal pain Acute cholecystitis HISTORY OF PRESENT ILLNESS: [ ] 63-year-old lady who presented with abdominal Pain started two days ago Associated with nausea and vomiting No diarrhea or constipation PAST MEDICAL HISTORY: [ ] None PAST SURGICAL HISTORY: [ ] FAMILY HISTORY: [ ] Positive for hypertension and diabetes SOCIAL HISTORY: [ ] No alcohol 1/2 pack per day of cigarette on and off Current Medications Medications (Trade) Dose Ordered Sig/Emerson Route Start Time Stop Time Status Last Admin Dose Admin Lactated Ringer's 1,000 ml @ 75 mls/hr [id number] IV 04/05/24 11:30 05/05/24 11:29 04/05/24 11:45 75 MLS/HR Pantoprazole Sodium (PROTonix 40MG INJ) 40 mg Q24H IVP 04/05/24 11:30 05/05/24 11:29 04/06/24 11:39 40 MG Piperacillin Sod/ Tazobactam Sod (Zosyn 3.375gm+NS 50ml) 3.375 gm Q8H IV 04/05/24 11:00 04/15/24 10:59 04/06/24 11:39 3.375 GM Allergies: Coded Allergies: No Known Allergies (Unverified Allergy, Unknown, 09/21/21) REVIEW OF SYSTEMS: TECHNICAL BUSINESS SYSTEMS ANALYST: [Denies headaches or blurring of vision.] RESP: [No cough, chest pain or SOB.] CVS: [No palpitaions.] GI: [abdominal pain with nausea and vomiting, no diarrhea or constipation.] MARIBEL: [No dysuria or hematuria.] Musculoskeletal: [No swelling or joint pain.] BACK: [No pain or swelling.] All other systems are reviewed and essentially negative pertinent positives in HPI. PHYSICAL EXAMINATION: GENERAL: [Patient is lying comfortably in bed, not in any obvious distress.] HEAD: [Normal with no signs of head trauma.] EYES: [Not pale not jaundiced afebrile to touch.] ENT: [ Normal.] NECK: [Supple,no tenderness,no lymphadenopathy,no masses,no thyromegaly ,no bruits, no JVD.] LUNGS: [Clear breath sounds bilaterally. No wheezes, rales, or rhonchi.] HEART: [Regular rate and rhythm. Normal S1 and S2, without murmurs, rub or gallop.] VASC: [No edema. Peripheral pulses normal and equal in all extremities.] ABD: [Bowel sounds present,soft, RUQ tender, no masses, no organomegaly.] : [Normal, no suprapubic tenderness.] LYMPH: [No lymphadenopathy noted.] EXT: [ Warm soft, non tender.] SKIN: [ No rashes or lesions.] NEURO: [ Awake Alert and oriented x3.] Vital Signs (last 8hr) Date Time Temp Pulse Resp B/P (MAP) Pulse Ox O2 Delivery O2 Flow Rate FiO2 04/06/24 11:15 98.4 60 20 101/60 96 Room Air 21 04/06/24 07:53 97.9 66 20 98/59 99 Room Air 21 LABORATORY: [ ] Hematology Labs: Test 04/06/24 06:00 04/05/24 09:50 Range/Units White Blood Count 6.0 # 4.8-10.8 K/uL Red Blood Count 4.03 # 4.00-5.50 MIL/uL Hemoglobin 11.8 #L 12.0-16.0 g/dL Hematocrit 35.7 L 36-48 % Mean Corpuscular Volume 88.6 79-99 fL Mean Corpuscular Hemoglobin 29.3 27.0-33.0 pg Mean Corpuscular Hemoglobin Concent 33.1 32.0-36.0 g/dL Red Cell Distribution Width 13.0 11.0-15.5 % Platelet Count 213 130-400 K/uL Mean Platelet Volume 10.5 7.5-10.5 fL Immature Granulocyte % (Auto) 0.3 0-1 % Neutrophils (%) (Auto) 62.4 40.0-77.0 % Lymphocytes (%) (Auto) 21.9 21.0-51.0 % Monocytes (%) (Auto) 9.2 3.0-13.0 % Eosinophils (%) (Auto) 5.4 0.0-8.0 % Basophils (%) (Auto) 0.8 0.0-5.0 % Neutrophils # (Auto) 3.7 1.8-7.7 K/uL Lymphocytes # (Auto) 1.3 1.0-4.8 K/uL Monocytes # (Auto) 0.6 0.1-1.0 K/uL Eosinophils # (Auto) 0.32 0.00-0.70 K/uL Basophils # (Auto) 0.05 0.00-0.20 K/uL Absolute Immature Granulocyte (auto 0.02 0-1 K/uL Nucleated Red Blood Cells 0.0 0.0-0.19 % Erythrocyte Sedimentation Rate 10 0-30 MM/HR Chemistry Labs: Test 04/06/24 06:00 04/06/24 05:22 04/05/24 09:50 Range/Units Sodium Level 145 136-145 mmol/L Potassium Level 3.7 3.5-5.1 mmol/L Chloride Level 110 101-111 mmol/L Carbon Dioxide Level 27 21-32 mmol/L Blood Urea Nitrogen 6 L 7-18 mg/dL Creatinine 0.9 0.5-1.0 mg/dL Glomerular Filtration Rate Calc 73 >90 mL/min Random Glucose 95 70-105 mg/dL Total Calcium 8.2 L 8.5-10.1 mg/dL Magnesium Level 2.00 1.80-2.40 mg/dL Total Bilirubin 3.8 #H 0.2-1.0 mg/dL Aspartate Amino Transf (AST/SGOT) 331 H 10-37 U/L Alanine Aminotransferase (ALT/SGPT) 364 #H 12-78 U/L Alkaline Phosphatase 193 H 50-136 U/L Total Protein 5.7 #L 6.0-8.3 g/dL Albumin 2.9 #L 3.5-5.0 g/dL Whole Blood Glucose 95 70-110 MG/DL Hemoglobin A1c 5.6 4.0-6.0 % Estimated Average Glucose (eAG) 114 70-126 mg/dL Direct Bilirubin 0.4 H 0.0-0.3 mg/dL Troponin I High Sensitivity 4 4-50 ng/L C-Reactive Protein, Quantitative 4.00 H 0.5-3.0 mg/L Lipase 48 16-77 U/L Procalcitonin < 0.05 L 0.05-0.5 ng/mL Thyroid Stimulating Hormone (TSH) 1.91 0.36-3.74 uIU/mL Coagulation Labs: Test 04/05/24 09:50 Range/Units Prothrombin Time 10.1 9.6-11.6 SEC Prothromb Time International Ratio <= 0.93 0.85-1.15 Activated Partial Thromboplast Time 26.1 L 26.3-35.5 SEC DIAGNOSTICS / RADIOLOGY: [Copy/Paste Echos/Imaging Report here] ASSESSMENT: [] Abdominal pain Acute cholecystitis Cholelithiasis PLAN: [] NPO/IVF/IV ANTIOBIOTICS Schedule for OR We talked about various treatment options including but not limited to surgery. We talked about risks and benefits of surgery, patient verbalized understanding has agreed to proceed [ ]. We will schedule [ robotic/laparoscopic cholecystectomy possible]. HARRISON LOOMIS MD Apr 06, 2024 12:40
[2024-04-06] MEDS ORDERED: INDOCYANINE GREEN 25 MG VIAL IJ ONE (13:29)
[2024-04-06] MEDS ORDERED: proPOFol 10 MG/ML 20ML VIAL IV ONE (13:30)
[2024-04-06] MEDS ORDERED: MIDAZOLAM HCL 1 MG/ML 2ML VIAL ONE (13:30)
[2024-04-06] MEDS ORDERED: ondanSETRON 4MG INJ ONE (13:30)
[2024-04-06] MEDS ORDERED: LIDOCAINE PF 100MG/5ML (2%) SYRINGE 5ML ONE (13:31)
[2024-04-06] MEDS ORDERED: FENTanyl CITRate PF 50 MCG/1 ML 2ML VIAL ONE (13:31)
[2024-04-06] MEDS ORDERED: rocuRONium bROMide 10MG/1ML 5ML VL ONE (13:31)
[2024-04-06] MEDS ORDERED: BUPIvacaine/PF 0.25% 30ML VIAL IJ ONE (13:38)
[2024-04-06] MEDS ORDERED: LIDOCAINE 2%-EPI 1:200,000 20 ML VIAL IJ ONE (13:38)
[2024-04-06] MEDS ORDERED: ceFAZolin SODIUM 1 GM VIAL ONE (13:39)
[2024-04-06] MEDS: LIDOCAINE 2%-EPI 1:200,000 20 ML VIAL IJ ONE (13:52)
[2024-04-06] MEDS ORDERED: dexaMETHasone SOD PHOSPHATE 10MG/ML 1ML VIAL ONE (13:59)
[2024-04-06] MEDS ORDERED: GLYCOPYRROLATE 0.2 MG/ML 5 ML VIAL ONE (14:44)
[2024-04-06] MEDS ORDERED: NEOSTIGMINE METHYLSULFATE 1MG/ML IV ONE (14:44)
--- NOTE | 2024-04-06 15:00 | OP ---
OP Procedure: Robotic Yeimy OP Procedure Note OPERATIVE PROCEDURE NOTE DATE OF SERVICE: Apr 06, 2024 PREOPERATIVE DIAGNOSIS Acute cholecystitis Cholelithiasis POSTOPERATIVE DIAGNOSIS: Acute cholecystitis Cholelithiasis PROCEDURES PREFORMED: 1. Robotic Cholecystectomy SURGEON: Amos Loomis MD ANESTHESIA: General. ESTIMATED BLOOD LOSS: Minimal. SPECIMEN(S) REMOVED: Gallbladder. FINDINGS: Ascites Severe right upper quadrant inflammatory adhesions Enlarged tense gallbladder Thick edematous gallbladder wall Cholelithiasis COMPLICATIONS: None. DESCRIPTION OF PROCEDURE: The patient was brought into the Operating Room. After proper identification, the patient was placed on the operating table in the supine position. General anesthesia was then administered and the patient was endotracheally intubated. Attention was then focussed in the area of the abdomen. The same was prepped and draped in the usual sterile fashion. An appropriate time-out was then carried out at this point. Then, I proceeded by making an incision in the infraumbilical region. The incision was carried through skin and subcutaneous tissue until the fascia was identified. The fascia was then carefully incised and the stay stitches were placed on either side of the fascia and the Shaneka port was then introduced. CO2 was insufflated into the abdomen and the robotic camera was then introduced. Inspection of the abdomen did not show any anterior abdominal wall adhesions. The gallbladder was noted to be enlarged and tense with evidence of severe right upper quadrant inflammatory adhesions. So at this point, I proceeded by placing the left-sided port and also the right-sided port under vision and my assignment desk assistant; port was then placed right- sided lateral. So, at this point, the patient was then placed in slight reverse Trendelenburg position and rotated to his left. The robot was then brought in and then we proceeded by docking the robot with no difficulty. Once the robot was docked and everything looked fine, I proceeded by going into the console area. My assignment desk assistant, then grasped the fundus of the gallbladder and the same was retracted cephalad and using the grasper and the robotic [ ], I proceeded by taking down the inflammatory adhesions in the right upper quadrant. At the infundibulum, I proceeded by grasping the infundibulum, I proceeded by carefully opening the peritoneum covering the triangle of Calot and I was able to expose the cystic duct and the cystic artery. Each of these structures were then skeletonized for a distance of about 2 cm and then I proceeded by placing clips; proximal and distal clips on each of these structures. Using the robotic scissors, I proceeded by transecting these 2 structures. The gallbladder was then removed from the gallbladder fossa using the robotic cautery all the way down until I was able to remove it at the fundus as well. Further inspection did not reveal any other pathology. Hemostasis was noted to be adequate. So, at this point, the robot was then undocked. I scrubbed in and the gallbladder was then extracted from the abdomen using an Endopouch. Copious amount of irrigation was carried out at this point. Hemostasis was noted to be adequate. Then, I proceeded by closing the wound. Ports were withdrawn under vision. CO2 was let out of the abdomen. The infraumbilical fascia was approximated together using 0 Vicryl [id number] stitches and the skin was approximated together using skin jean pierre sterile dressings were then applied. Instrument and sponges count was found correct x2. The patient was then woken up, extubated and taken to Recovery Room in stable condition. The patient tolerated the procedure well. AMOS LOOMIS MD Apr 06, 2024 15:00
--- NOTE | 2024-04-06 15:40 | NUR ---
DCP: HOME Sw met with pt's daughter Alexandra Tijerina [phone] who lives at home with pt. Pt works at [employer], drives and is independent of all ADLS. Pt uses no in home cares services and is see at [facility] for care and meds. DCP is home Addendum: 04/06/24 at 1542 by KILEY ANDUJAR Amended: Links added.
[2024-04-06] MEDS ORDERED: hydroMORPHone 1 MG INJ IVP PRN (18:00)
[2024-04-06] MEDS ORDERED: oxyCODONE/aceTAMIN 5/325MG TAB PO PRN (18:00)
[2024-04-07 04:05] VITALS: BP 102/49; PULSE 69; RESP 16; TEMP 98.1
[2024-04-07 05:33] LABS: BASOPHILS # (AUTO) 0.03 K/uL (0.00-0.20); BASOPHILS % (AUTO) 0.4 % (0.0-5.0); EOSINOPHILS # (AUTO) 0.01 K/uL (0.00-0.70); EOSINOPHILS % (AUTO) 0.1 % (0.0-8.0); HEMATOCRIT 35.5 % (36-48); IMMATURE GRANULOCYTE ABSOLUTE 0.04 K/uL (0-1); LYMPHOCYTES # (AUTO) 1.1 K/uL (1.0-4.8); LYMPHOCYTES % (AUTO) 13.8 % (21.0-51.0); MEAN CORPUSCULAR HEMOGLOBIN 28.7 pg (27.0-33.0); MEAN CORPUSCULAR HGB CONC 32.7 g/dL (32.0-36.0); MEAN CORPUSCULAR VOLUME 87.9 fL (79-99); MONOCYTES # (AUTO) 0.6 K/uL (0.1-1.0); MONOCYTES % (AUTO) 7.9 % (3.0-13.0); NEUTROPHILS # (AUTO) 6.2 K/uL (1.8-7.7); NEUTROPHILS % (AUTO) 77.3 % (40.0-77.0); PLATELET COUNT (AUTO) 229 K/uL (130-400); RED BLOOD CELL COUNT(AUTO) 4.04 MIL/uL (4.00-5.50)
[2024-04-07 05:55] LABS: ALBUMIN 2.8 g/dL (3.5-5.0); BILIRUBIN,TOTAL 1.9 mg/dL (0.2-1.0); CREATININE 0.8 mg/dL (0.5-1.0); POTASSIUM 3.9 mmol/L (3.5-5.1); TOTAL PROTEIN, SERUM 5.7 g/dL (6.0-8.3)
[2024-04-07 07:35] VITALS: BP 97/54; PULSE 72; RESP 20; TEMP 98.2
[2024-04-07 11:46] VITALS: BP 91/47; PULSE 70; RESP 18; TEMP 98.5
[2024-04-07] MEDS ORDERED: AMOX1TAB16 PO (11:56)
--- NOTE | 2024-04-07 12:02 | DS ---
Discharge Summary Hospital Course Summary: 63-year-old female with history of cholelithiasis, fatty liver disease who presented to the ER with chief complaint of who presented to the ER with chief complaint of right upper quadrant abdominal pain with associated nausea and and vomiting. Symptoms started close to 4:00 a.m.. Pain was 8/10 in severity. Patient denies any fevers or chills otherwise. Patient had presented similarly about a [place] ago [place] [facility] [place] was diagnosed with cholelithiasis. She denies any previous cardiac or medical comorbidities otherwise. Son reports that she ate a spicy meal for supper last night which probably contributed to the current symptoms. On presentation to the hospital, patient was noted to be afebrile and hemodynamically stable. CMP remarkable for sodium of 140, potassium 3.4, creatinine 0.8, total bilirubin of 0.8, AST of 289, ALT of 155, alkaline phosphatase of 192. Patient underwent right upper quadrant ultrasound which showed findings of distended gallbladder with gallstones and positive Ceja's sign. Common bile duct was noted to be 0.3 cm. Findings concerning for early acute cholecystitis. Patient will be admitted for further management of biliary colic with cholelithiasis and developing acute cholecystitis. Consultation with General surgery will be requested. Patient will be placed on bowel rest with IV fluids and IV antibiotics. HIDA scan will be obtained as well to confirm diagnosis of acute cholecystitis. Plan of care was discussed with patient and son at bedside. Patient was evaluated by general surgery, who recommended robotic cholecystectomy which was done on 04/06/2024. Today is postop day one. Postprocedure findings showed ascites, severe right upper quadrant inflammatory adhesions, enlarged tense gallbladder, thick edematous gallbladder wall, cholelithiasis. Today is postop day one, patient is moving her bowels and having flatus. She has tolerated her diet. While admitted, patient was also noted with urinary tract infection. Patient is hemodynamically stable, labs reviewed. Patient will continue with antibiotics with Augmentin times 10 days. Patient we will follow up with her PCP in 2-3 days. Patient will follow up with general surgeon in one week. This has been discussed with the patient and son at bedside. And they both verbalized understanding. Sales Support Rep(s): Dr. Trinidad- Surgeon Procedure(s): OPERATIVE REPORT Name: ROBERTO CARLOS TORRES Acct: [id number] MR: [id number] : 1960 Admit Date: 04/05/24 AMOS ESPANA MD [facility] [address] [place] [id number] OP Procedure: Robotic Yeimy OP Procedure Note OPERATIVE PROCEDURE NOTE DATE OF SERVICE: Apr 06, 2024 PREOPERATIVE DIAGNOSIS Acute cholecystitis Cholelithiasis POSTOPERATIVE DIAGNOSIS: Acute cholecystitis Cholelithiasis PROCEDURES PREFORMED: 1. Robotic Cholecystectomy SURGEON: Amos Espana MD ANESTHESIA: General. ESTIMATED BLOOD LOSS: Minimal. SPECIMEN(S) REMOVED: Gallbladder. FINDINGS: Ascites Severe right upper quadrant inflammatory adhesions Enlarged tense gallbladder Thick edematous gallbladder wall Cholelithiasis COMPLICATIONS: None. DESCRIPTION OF PROCEDURE: The patient was brought into the Operating Room. After proper identification, the patient was placed on the operating table in the supine position. General anesthesia was then administered and the patient was endotracheally intubated. Attention was then focussed in the area of the abdomen. The same was prepped and draped in the usual sterile fashion. An appropriate time-out was then carried out at this point. Then, I proceeded by making an incision in the infraumbilical region. The incision was carried through skin and subcutaneous tissue until the fascia was identified. The fascia was then carefully incised and the stay stitches were placed on either side of the fascia and the Shaneka port was then introduced. CO2 was insufflated into the abdomen and the robotic camera was then introduced. Inspection of the abdomen did not show any anterior abdominal wall adhesions. The gallbladder was noted to be enlarged and tense with evidence of severe right upper quadrant inflammatory adhesions. So at this point, I proceeded by placing the left-sided port and also the right-sided port under vision and my plastic surgery assistant; port was then placed right- sided lateral. So, at this point, the patient was then placed in slight reverse Trendelenburg position and rotated to his left. The robot was then brought in and then we proceeded by docking the robot with no difficulty. Once the robot was docked and everything looked fine, I proceeded by going into the console area. My plastic surgery assistant, then grasped the fundus of the gallbladder and the same was retracted cephalad and using the grasper and the robotic [ ], I proceeded by taking down the inflammatory adhesions in the right upper quadrant. At the infundibulum, I proceeded by grasping the infundibulum, I proceeded by carefully opening the peritoneum covering the triangle of Calot and I was able to expose the cystic duct and the cystic artery. Each of these structures were then skeletonized for a distance of about 2 cm and then I proceeded by placing clips; proximal and distal clips on each of these structures. Using the robotic scissors, I proceeded by transecting these 2 structures. The gallbladder was then removed from the gallbladder fossa using the robotic cautery all the way down until I was able to remove it at the fundus as well. Further inspection did not reveal any other pathology. Hemostasis was noted to be adequate. So, at this point, the robot was then undocked. I scrubbed in and the gallbladder was then extracted from the abdomen using an Endopouch. Copious amount of irrigation was carried out at this point. Hemostasis was noted to be adequate. Then, I proceeded by closing the wound. Ports were withdrawn under vision. CO2 was let out of the abdomen. The infraumbilical fascia was approximated together using 0 Vicryl [id number] stitches and the skin was approximated together using skin jean pierre sterile dressings were then applied. Instrument and sponges count was found correct x2. The patient was then woken up, extubated and taken to Recovery Room in stable condition. The patient tolerated the procedure well. AMOS ESPANA MD Apr 06, 2024 15:00 Electronically Signed by: AMOS ESPANA MD04/06/24 1500 Electronically Co-Signed by: Assessment/Plan: Discharge Diagnoses: Post op findings: -Ascites -Severe right upper quadrant inflammatory adhesions -Enlarged tense gallbladder -Thick edematous gallbladder wall -Cholelithiasis Acute cholecystitis, POA confirmed via MRCP Cholelithiasis with history of recurrent biliary colic, POA Transaminases, POA Choledocholithiasis ruled out, confirmed via MRCP Moderate protein calorie malnutrition, not POA Fatty liver disease, POA Mild cholestatic hepatitis, POA Hypokalemia, POA PVCs, POA Admitting diagnoses: Acute cholecystitis, POA confirmed via MRCP Cholelithiasis with history of recurrent biliary colic, POA Transaminases, POA Choledocholithiasis ruled out, confirmed via MRCP Moderate protein calorie malnutrition, not POA Fatty liver disease, POA Mild cholestatic hepatitis, POA Hypokalemia, POA PVCs, POA Discharge Instructions: Patient to continue with antibiotics times 10 days with Augmentin Follow up with PCP in 2-3 days Follow up with general surgeon in one week Home Medications: Discontinued Scripts Diclofenac Sodium (Diclofenac Sodium) 50 Mg Tablet.dr, 50 MG PO TIDP PRN for SEVERE PAIN (7-10), #20 TAB 0 Refills Prov:JAVIER OSBORN MD 09/21/21 New Medications: Amoxicillin/Potassium Clav (Amox Tr-K Clv 875-125 mg Tab) 875 Mg-125 Mg Tablet 1 TAB PO BID for 10 Days, #20 TAB 0 Refills Time spent arranging discharge: 31-60 minutes ATTESTATION BY PHYSICIAN I have seen and examined the patient. I reviewed the documentation, medical decision making, and treatment plan as noted by the mid-level provider above. I agree with the findings and plan of care. Tabitha Feng MD, [facility] Apr 07, 2024 12:02
--- NOTE | 2024-04-07 20:05 | PN ---
GASTROENTEROLOGY PROGRESS NOTE Date of Visit: Apr 07, 2024 Time of Visit: 20:05 Events / Notes: [ ] Review of Systems: CONSTITUTIONAL: No malaise or change in sensation of wellbeing. ENMT: No rhinorrhea, otorrhea, sinus pain, ear ache. CARDIOVASCULAR: No angina, palpitations, orthopnea or paroxysmal dyspnea. RESPIRATORY: No SOB. GASTROINTESTINAL: No abdominal pain, nausea, vomiting, diarrhea, hematemesis, melena or change in the patient's habitual bowel movements consistency/number. GENITOURINARY: No dysuria, hematuria or change in bladder continence. MUSCULOSKELETAL: No new muscle pain or decrease in muscular strength. No new joint swelling, redness or tenderness. SKIN: No new rash. Physical Exam: GEN: Awake, alert, oriented in person, time and place, and in no acute distress. HEENT: No sinus tenderness. Tympanic membranes were not examined. No rhinorrhea. Oral pharyngeal mucosa is pink, moist and within normal limits. Neck is supple with no cervical lymphadenopathy, thyromegaly or JVD. CHEST: Inspection, palpation and percussion of the chest were unremarkable. Lung auscultation revealed normal breath sounds bilaterally. CARDIAC: PMI is within normal limits. Heart sounds are regular. Normal S1, S2. No gallop or murmur. ABD: Soft, non-tender and not distended. No peritoneal signs on palpation. No organomegaly. Normal bowel sounds. EXT: No cyanosis or clubbing. No edema. SKIN: Intact. No rashes. JOINTS: No evidence of synovitis or acute arthritis. NEURO: Alert and oriented to name, place and person. Cranial nerve examination is unremarkable. No focal motor deficits. Normal speech. Gait is normal. Strength is normal. Laboratory: [ ] Laboratory: Test 04/07/24 05:15 04/06/24 06:00 04/06/24 05:22 Range/Units White Blood Count 8.0 # 4.8-10.8 K/uL Red Blood Count 4.04 4.00-5.50 MIL/uL Hemoglobin 11.6 L 12.0-16.0 g/dL Hematocrit 35.5 L 36-48 % Mean Corpuscular Volume 87.9 79-99 fL Mean Corpuscular Hemoglobin 28.7 27.0-33.0 pg Mean Corpuscular Hemoglobin Concent 32.7 32.0-36.0 g/dL Red Cell Distribution Width 13.0 11.0-15.5 % Platelet Count 229 130-400 K/uL Mean Platelet Volume 10.6 H 7.5-10.5 fL Immature Granulocyte % (Auto) 0.5 0-1 % Neutrophils (%) (Auto) 77.3 H 40.0-77.0 % Lymphocytes (%) (Auto) 13.8 L 21.0-51.0 % Monocytes (%) (Auto) 7.9 3.0-13.0 % Eosinophils (%) (Auto) 0.1 0.0-8.0 % Basophils (%) (Auto) 0.4 0.0-5.0 % Neutrophils # (Auto) 6.2 1.8-7.7 K/uL Lymphocytes # (Auto) 1.1 1.0-4.8 K/uL Monocytes # (Auto) 0.6 0.1-1.0 K/uL Eosinophils # (Auto) 0.01 0.00-0.70 K/uL Basophils # (Auto) 0.03 0.00-0.20 K/uL Absolute Immature Granulocyte (auto 0.04 0-1 K/uL Nucleated Red Blood Cells 0.0 0.0-0.19 % Sodium Level 143 136-145 mmol/L Potassium Level 3.9 3.5-5.1 mmol/L Chloride Level 107 101-111 mmol/L Carbon Dioxide Level 23 21-32 mmol/L Blood Urea Nitrogen 10 7-18 mg/dL Creatinine 0.8 0.5-1.0 mg/dL Glomerular Filtration Rate Calc 84 >90 mL/min Random Glucose 88 70-105 mg/dL Total Calcium 8.3 L 8.5-10.1 mg/dL Total Bilirubin 1.9 #H 0.2-1.0 mg/dL Aspartate Amino Transf (AST/SGOT) 149 H 10-37 U/L Alanine Aminotransferase (ALT/SGPT) 258 #H 12-78 U/L Alkaline Phosphatase 192 H 50-136 U/L Total Protein 5.7 L 6.0-8.3 g/dL Albumin 2.8 L 3.5-5.0 g/dL Magnesium Level 2.00 1.80-2.40 mg/dL Whole Blood Glucose 95 70-110 MG/DL Current Medications Medications (Trade) Dose Ordered Sig/Emerson Route PRN Reason Start Time Stop Time Status Last Admin Dose Admin Acetaminophen (TYLenol 500MG TAB) 500 mg Q6H PRN PO MILD PAIN (1-3) 04/05/24 11:30 04/07/24 14:50 DC Hydromorphone HCl (DiLAUDid 1MG INJ) 1 mg Q3H3 PRN IVP SEVERE PAIN (7-10) 04/06/24 18:00 04/07/24 14:50 DC Ketorolac Tromethamine (toRADol) 15 mg Q12H PRN IM MODERATE PAIN (4-6) 04/05/24 11:30 04/05/24 11:27 DC Ketorolac Tromethamine (toRADol) 15 mg Q12H PRN IV MODERATE PAIN (4-6) 04/05/24 11:30 04/07/24 14:50 DC 04/06/24 11:40 15 MG Lactated Ringer's 1,000 ml @ 75 mls/hr [id number] IV 04/05/24 11:30 04/07/24 14:50 DC 04/05/24 11:45 75 MLS/HR Morphine Sulfate (morPHINE 2MG SYG) 2 mg Q6H PRN IVP SEVERE PAIN (7-10) 04/05/24 11:30 04/06/24 17:56 DC Ondansetron HCl (zoFRAN 4MG INJ) 4 mg Q6H PRN IVP NAUSEA/VOMITING 04/05/24 11:30 04/07/24 14:50 DC Oxycodone/ Acetaminophen (perCOCET) 1 tab Q4HPRN PRN PO PAIN LEVEL 4 TO 6 04/06/24 18:00 04/07/24 14:50 DC Pantoprazole Sodium (PROTonix 40MG INJ) 40 mg Q24H IVP 04/05/24 11:30 04/07/24 14:50 DC 04/07/24 11:00 40 MG Piperacillin Sod/ Tazobactam Sod (Zosyn 3.375gm+NS 50ml) 3.375 gm Q8H IV 04/05/24 11:00 04/07/24 14:50 DC 04/07/24 11:00 3.375 GM Potassium Chloride 100 ml @ 100 mls/hr AD PRN IV POTASSIUM PROTOCOL 04/05/24 11:30 04/07/24 14:50 DC Potassium Chloride (K-Dur/Klor-Con 20meq) 20 meq AD PRN PO POTASSIUM PROTOCOL 04/05/24 11:30 04/07/24 14:50 DC Potassium Chloride (KCl 10% Elixir 20meq/15ml) 20 meq AD PRN PO POTASSIUM PROTOCOL 04/05/24 11:30 04/07/24 14:50 DC Diagnostics / Radiology: [COPY/PASTE HERE IF NO REPORTS PLEASE DELETE SECTION] Assessment: [ ] Plan: [ ] [facility] Apr 07, 2024 20:05
== END 2024-04-07 14:45 | disposition home or self-care (01) | DRG 418 ==
LOC: EDH 09:30 → EDHIP 09:31 → 4DH 15:20
PROVIDERS: ADMIT Internal Medicine; ATTEND Internal Medicine
PROC: 8E0W4CZ Robotic Assisted Procedure of Trunk Region, Percutaneous Endoscopic Approach (ICD-10-PCS; 2024-04-06)
PROC: 0FT44ZZ Resection of Gallbladder, Percutaneous Endoscopic Approach (ICD-10-PCS; principal; 2024-04-06 13:42)
DX: K80.62 Calculus of gallbladder and bile duct with acute cholecystitis without obstruction (principal); E44.0 Moderate protein-calorie malnutrition; N39.0 Urinary tract infection, site not specified; K76.0 Fatty (change of) liver, not elsewhere classified; K75.89 Other specified inflammatory liver diseases; F17.210 Nicotine dependence, cigarettes, uncomplicated; I49.3 Ventricular premature depolarization; K82.8 Other specified diseases of gallbladder; E87.6 Hypokalemia; Z68.20 Body mass index [BMI] 20.0-20.9, adult; Z83.3 Family history of diabetes mellitus; Z82.49 Family history of ischemic heart disease and other diseases of the circulatory system; Z79.899 Other long term (current) drug therapy
CPT/HCPCS: 36415; 71045; 74181; 76705; 78226; 80048; 80053; 80076; 81001; 82948; 83036; 83690; 83735; 84145; 84443; 84484; 85025; 85610; 85651; 85730; 86140; 87086; 93005; 96374; 96375; 99285; A9537; G0378; J0690; J1100; J1885; J2003; J2250; J2270; J2405; J2470; J2543; J2704; J2710; J3010; J3490; J7030; A4930; C1769; J0665; S8037